=== PATIENT | male | born 1980 ===

== ENCOUNTER 2019-12-23 17:30 | Emergency (ER) | payer SELFPAY ==
[~2019-12-23 17:30] MED LIST: Atropine Sulfate 1 mg/10 ml Syringe ONE; EPINEPHrine 1 MG/10 ML Abboject SYRINGE ONE; EPINEPHrine 1 MG/ML AMP ONE; Lactated Ringer's 1,000 ML BAG ONE; Sodium Bicarb 50 MEQ/50 ML Abboject 8.4% SYRINGE ONE; Sodium Chloride 0.9% 1,000 ML BAG ONE
[2019-12-23] MEDS ORDERED: EPINEPHrine 1 MG/10 ML Abboject SYRINGE ONE (17:45)
[2019-12-23 17:59] LABS: INR-International Normal Ratio 1.8; Prothrombin Time 20.4 sec (12.0-14.7)
[2019-12-23 18:00] LABS: PTT 94.6 SEC (22.9-36.1)
[2019-12-23 18:08] LABS: Anisocytosis SLIGHT = 6-15 cells (100X) (0-5/hpf); Hemoglobin 9.4 g/dL (14.0-18.0); Hypochromia SLIGHT = 6-15 cells (100X) (0-5/hpf); Lymphocytes 83 % (21-51); MDiff Complete? YES; Mean Corpuscular HGB CONC 29.1 g/dL (32.0-36.0); Mean Corpuscular Hemoglobin 19.2 pg (27.0-31.0); Mean Corpuscular Volume 66.1 fL (78.0-98.0); Mean Platelet Volume 8.2 fL (7.4-10.4); Microcytosis SLIGHT = 6-15 cells (100X) (0-5/hpf); Monocytes 4 % (0-10); Neutrophil 13 % (42-75); Nucleated RBC 1 % (0); Platelet Count 113 thou/uL (130-400); Platelet Morphology Comment Appears Decreased; RBC Distribution Width 13.8 % (11.5-14.5); White Blood Cell (WBC) Count 10.1 thou/uL (4.8-10.8)
[2019-12-23 18:09] LABS: ALT (SGPT) 347 U/L (8-55); AST (SGOT) 244 U/L (5-34); Alkaline Phosphatase 49 U/L (40-110); Anion Gap 38 mmol/L (10-20); BUN (Urea Nitrogen) 19 mg/dL (8.9-20.6); Bilirubin, Total 0.5 mg/dL (0.2-1.2); Calc. Creatinine Clearance 0 mL/min (70-130); Calcium 7.6 mg/dL (7.8-10.44); Carbon Dioxide 16 mmol/L (22-29); Chloride 107 mmol/L (98-107); Estimated GFR-MDRD 39; Globulin 1.7 g/dL (2.4-3.5); Glucose 286 mg/dL (70-105); Potassium 4.9 mmol/L (3.5-5.1); Protein, Total 4.7 g/dL (6.0-8.3); Sodium 156 mmol/L (136-145)
[2019-12-23 18:11] LABS: CKMB 3.7 ng/mL (0-6.6); Troponin I Less than 0.010 ng/mL (< 0.028)
== END 2019-12-23 21:28 | disposition expired ==
LOC: MADERS 17:30
DX: I46.9 Cardiac arrest, cause unspecified (principal); R09.01 Asphyxia
CPT/HCPCS: 31500; 36415; 51702; 80053; 82553; 84484; 85025; 85610; 85730; 94760; 96365; 96374; 96375; 96376; J0171; J0461; J7050; J7070; J7120